=== PATIENT | male | born 2000 | race African-American/Black ===

== ENCOUNTER 2023-01-09 23:29 | Emergency (ER) | payer BC ==
[~2023-01-09] VITALS: Ht 182.9 cm; Wt 63.5 kg
[2023-01-09 23:38] VITALS: BP 131/61
[2023-01-09] MEDS ORDERED: KETOROLAC TROMETHAMINE INJ 60 MG/2 ML VIAL IM ONE (23:48)
[2023-01-09] MEDS ORDERED: HYDROCODONE/APAP 5/325MG TABLET ONE (23:48)
[2023-01-09] MEDS ORDERED: OXYC-128 PO (23:49)
[2023-01-09] MEDS ORDERED: KETO10TA2 PO (23:49)
[2023-01-10] MEDS ORDERED: HYDROCODONE/APAP 5/325MG TABLET PO ONE
[2023-01-10] MEDS ORDERED: KETOROLAC TROMETHAMINE INJ 60 MG/2 ML VIAL IM ONE
== END 2023-01-10 | disposition home or self-care (01) ==
LOC: ER 23:34
DX: S02.5XXA Fracture of tooth (traumatic), initial encounter for closed fracture (principal); X58.XXXA Exposure to other specified factors, initial encounter; Y93.89 Activity, other specified; Y92.89 Other specified places as the place of occurrence of the external cause; Y99.8 Other external cause status
CPT/HCPCS: 99283; 96372; J1885